=== PATIENT | male | born 1965 | race African-American/Black ===

== ENCOUNTER 2025-01-28 13:04 | Emergency (ER) | payer MEDICAID ==
[~2025-01-28] VITALS: Ht 175.3 cm; Wt 72.0 kg
--- NOTE | 2025-01-28 13:57 | DVH ---
CLINICAL INDICATION: pain TECHNIQUE: 4 radiographic views of the right hand were obtained. Comparison: None FINDINGS/IMPRESSION: There is a mildly displaced fracture of the 2nd metacarpal head
[2025-01-28] MEDS ORDERED: IBUP1TAB5 PO (14:43)
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
[2025-01-28 15:30] VITALS: BP 155/87; PULSE 55; RESP 18; TEMP 97.9; O2SAT 99
== END 2025-01-28 15:32 | disposition home or self-care (01) ==
LOC: ER 13:04
DX: S62.390A Other fracture of second metacarpal bone, right hand, initial encounter for closed fracture (principal); Z79.899 Other long term (current) drug therapy; Y04.0XXA Assault by unarmed brawl or fight, initial encounter; Y93.89 Activity, other specified; Y92.89 Other specified places as the place of occurrence of the external cause; Y99.8 Other external cause status
CPT/HCPCS: 73130